=== PATIENT | male | born 1945 | race Caucasian/White ===

== ENCOUNTER 2022-12-19 09:27 | Day surgery (SDC) | payer MEDICARE, OTHER ==
--- NOTE | 2022-12-18 09:28 | HP ---
DATE OF SURGERY: 12/19/2022 HISTORY OF PRESENT ILLNESS: The patient is a 77-year-old male presents with need for colonoscopy. The patient had a colonoscopy about three years ago and had polyps. The patient's father had colon cancer. He denies GI signs or symptoms. PAST MEDICAL HISTORY: Thyroid, hypertension, hyperlipidemia. PAST SURGICAL HISTORY: Back surgery. ALLERGIES: STATINS-HMG CoA reductase inhibitor. MEDICATIONS: Zetia, aspirin, vitamin D, fish oil, amlodipine, levothyroxine, Lisinopril. FAMILY HISTORY: Heart disease, pancreatic cancer, colon cancer. SOCIAL HISTORY: Former smoker. REVIEW OF SYSTEMS: CONSTITUTIONAL: Denies fever or chills. CHEST: Denies shortness of breath. CVS: Denies chest pain. ABDOMEN: Denies abdominal pain. PHYSICAL EXAMINATION: GENERAL: No acute distress. CHEST: Nonlabored. No shortness of breath. CVS: Regular rate and rhythm. ABDOMEN: Soft. IMPRESSION: History of polyps. PLAN: Colonoscopy with Dr. Corey Ponce. As dictated by Ester Orozco NP.
[2022-12-19] MEDS ORDERED: Lactated Ringers 1,000 ML IV ONE (09:50)
[2022-12-19] MEDS ORDERED: Lactated Ringers 1,000 ML IV SCH (10:00)
[2022-12-19] MEDS ORDERED: DIPRIVAN 200 MG/20 ML IV ONE (10:53)
[2022-12-19] MEDS ORDERED: Versed 2 MG/2 ML Injection ONE (10:53)
[2022-12-19] MEDS ORDERED: Xylocaine-Mpf 2% 5 Ml Vial ONE (10:53)
[2022-12-19] MEDS ORDERED: GlucaGen 1 MG ONE (11:05)
[2022-12-19 11:53] VITALS: BP 123/65; PULSE 55; O2SAT 98
--- NOTE | 2022-12-19 15:11 | OP ---
SURGERY DATE/TIME: 12/19/2022 1056 PREOPERATIVE DIAGNOSIS: Follow up polyps. POSTOPERATIVE DIAGNOSES: 1) Normal today. 2) Moderate internal hemorrhoids. PROCEDURE: Colonoscopy complete. SURGEON: Corey Ponce M.D. ANESTHESIA: MAC. COMPLICATIONS: None. CONDITION: Stable. INDICATION: The patient has personal history of polyps, family history of colon cancer. He had a scope three years ago with polyp. He presents for follow up. DESCRIPTION OF PROCEDURE: Taken to endoscopy. Scope introduced. Moderate internal hemorrhoids. Rectal area satisfactory. Prostate area satisfactory. Rectosigmoid junction cannulated. The scope advanced up to the cecum. Base of the cecum, ileocecal valve, appendiceal orifice all normal. Ascending, hepatic, transverse, splenic, descending, sigmoid, rectum, anus moderate internal hemorrhoids otherwise normal. Findings discussed with the family in the waiting room. The patient had a very satisfactory appearing colon today and has been moved out from three year to five years. Next one may qualify as the last one unless there are polyps. PLAN: Follow up five years.
== END 2022-12-19 12:00 | disposition home or self-care (01) ==
LOC: SDC 09:27
PROVIDERS: ATTEND Surgery
DX: Z09 Encounter for follow-up examination after completed treatment for conditions other than malignant neoplasm (principal); Z86.010 Personal history of colon polyps; Z80.0 Family history of malignant neoplasm of digestive organs; K64.8 Other hemorrhoids
CPT/HCPCS: 99100; J1610; J2250; J2704